=== PATIENT | male | born 1970 | race Caucasian/White ===

== ENCOUNTER → 2016-10-09 | Day surgery (SDC) | payer OTHER ==
[~2016-10-09] VITALS: Ht 185.4 cm; Wt 149.0 kg
[~2016-10-09] MED LIST: AMLO10 PO; DEXAMETHASONE SOD PHOS 4 MG/ML VIAL ONE; DO NOT ADM ANY ANTICOAGULANT DRUGS XX PRN; INSULIN HUMAN REGULAR 1,000 UNITS/10 ML VIAL SQ PRN; LACTATED RINGER'S 1000 ML IV SCH; METOPROLOL TARTRATE 25 MG TAB PO PRN; MIDAZOLAM HCL 2 MG/2 ML VIAL ONE; OMEP10CA PO; ONDANSETRON HCL 4 MG/2 ML VIAL IV PRN; OXYC-395 PO; PROPOFOL 200 MG/20 ML AMP IV ONE; SIMV5TAB3 PO; SODIUM CHLORID 0.9% 500 ML IV SCH; ceFAZolin 1,000 MG/NS 100 ML IV SCH; oxyCODONE/ACETAMINOPHEN 5 MG/325 MG TAB PO PRN
[2016-10-09 06:35] VITALS: BP 145/96; PULSE 90; RESP 20; TEMP 98.2; O2SAT 94
[2016-10-09 10:30] VITALS: BP 147/89; PULSE 89; RESP 20; TEMP 98; O2SAT 98
--- NOTE | 2016-10-09 11:12 | MP ---
cc: RAMIRO EWING MD DATE OF SURGERY 10/09/2016 PREOPERATIVE DIAGNOSIS Left nephrolithiasis POSTOPERATIVE DIAGNOSIS Left nephrolithiasis SURGEON Ramiro Ewing MD PROCEDURE PERFORMED Left ESWL PERTINENT FINDINGS 1. Left proximal mid ureteral stone approximately 7 mm in size 2. Adequate fragmentation of stones noted on fluoroscopic imaging after completion of ESWL. HISTORY OF PRESENT ILLNESS Aaron Henry is a 46-year-old male with a left sided nephrolithiasis who presents today for treatment of his stone burden with ESWL. The patient understands the risks and benefits of the procedure and also understands if the stone fragments, there is a chance it may get stuck in the ureter on its way out, therefore requiring a left ureteral stent. The patient understand and agrees to proceed forward with the operation. PROCEDURE IN DETAIL After proper informed consent was obtained, the patient was brought to the operating room and laid supine on the operating room table. The patient was then placed under general anesthesia. The patient was placed in position for the lithotripsy machine. Fluoroscopy identified the left mid to proximal ureteral stone. At this point, 3000 shocks were delivered to the stone with adequate fragmentation noted on fluoroscopic imaging. After completion of the 3000 shocks, the patient was awoken from anesthesia and taken to the PACU in good and stable condition. The patient tolerated the procedure well with no complications. DISPOSITION The patient will be discharged home with follow up in the clinic in one to two weeks with KUB. Ramiro Ewing M.D. SMTimothy/MALIKA /8:23 AM /11:02 AM
--- NOTE | 2016-10-09 22:28 | EKG ---
Date Performed: 10/09/2016 Time Performed: 06:45:06 PTAGE: 46 years EKG: Sinus rhythm PROBABLE INFERIOR MYOCARDIAL INFARCTION , PROBABLY OLD ABNORMAL ECG NO PREVIOUS TRACING DOCTOR: Arjun Garcia Interpretating Date/Time 10/09/2016 22:26:06
== END | disposition home or self-care (01) ==
LOC: HSDC 05:46
PROVIDERS: ATTEND Urology
DX: N20.1 Calculus of ureter (principal); N20.0 Calculus of kidney; Z01.810 Encounter for preprocedural cardiovascular examination
CPT/HCPCS: 00872; 50590; 93005; J0690; J1100; J2250; J7120

== ENCOUNTER → 2017-03-03 | Day surgery (SDC) | payer OTHER ==
[~2017-03-03] MED LIST changes: -DEXAMETHASONE SOD PHOS 4 MG/ML VIAL ONE; -DO NOT ADM ANY ANTICOAGULANT DRUGS XX PRN; -INSULIN HUMAN REGULAR 1,000 UNITS/10 ML VIAL SQ PRN; +LACTATED RINGER'S 1000 ML INJ 1,000 ML ONE; -LACTATED RINGER'S 1000 ML IV SCH; -METOPROLOL TARTRATE 25 MG TAB PO PRN; -MIDAZOLAM HCL 2 MG/2 ML VIAL ONE; -ONDANSETRON HCL 4 MG/2 ML VIAL IV PRN; -PROPOFOL 200 MG/20 ML AMP IV ONE; +PROPOFOL 500 MG/50 ML BTL IV ONE; -SODIUM CHLORID 0.9% 500 ML IV SCH; -ceFAZolin 1,000 MG/NS 100 ML IV SCH; -oxyCODONE/ACETAMINOPHEN 5 MG/325 MG TAB PO PRN
--- NOTE | 2017-03-03 15:27 | GIPROC ---
[facility] [address] [facility], [address] COLONOSCOPY PROCEDURE REPORT EXAM DATE: 03/03/2017 PATIENT NAME: Aaron Henry MR #: [id number] BIRTHDATE: 1970 ENDOSCOPIST: Tete Meehan MD ORDER #: [id number] PROFESSOR OF HISTORICAL THEOLOGY: Veda Clemens RN STATUS: outpatient INDICATIONS: The patient is a 46 yr old male here for a colonoscopy due to high risk patient with personal history of colonic polyps and chronic diarrhea PROCEDURE PERFORMED: Colonoscopy with biopsy MEDICATIONS: None and Per Anesthesia. PREP QUALITY: fair ESTIMATED BLOOD LOSS: None CONSENT: The patient understands the risks and benefits of the procedure and understands that these risks include, but are not limited to: sedation, allergic reaction, infection, perforation and/or bleeding. Alternative means of evaluation and treatment include, among others: physical exam, x-rays, and/or surgical intervention. The patient elects to proceed with this endoscopic procedure. medical equipment was checked for proper function. Hand hygiene and appropriate measures for infection prevention was taken. After the risks, benefits and alternatives of the procedure were thoroughly explained, Informed consent was verified, confirmed and timeout was successfully executed by the treatment team. A digital exam revealed no abnormalities of the rectum The EC-3490Li ([id number]) endoscope was introduced through the anus and advanced to the cecum, which was identified by both the appendix and ileocecal valve. The instrument was then slowly withdrawn as the colon was fully examined. COLON FINDINGS: The colonic mucosa appeared normal. Random Bx from cecum and sigmoid for diarrhea. The colon mucosa was otherwise normal. Some stool mostly right colon. Retroflexed views revealed no abnormalities The scope was then completely withdrawn from the patient and the procedure terminated. ADVERSE EVENTS: There were no complications. IMPRESSIONS: 1. The colonic mucosa appeared normal 2. Random Bx from cecum and sigmoid for diarrhea 3. The colon mucosa was otherwise normal 4. Some stool mostly right colon 5. Retroflexed views revealed no abnormalities 6. Revealed no abnormalities of the rectum RECOMMENDATIONS: 1. Await biopsy results. Biopsy results will not be ready for 7-10 days. If you don't hear from us in two weeks, call our office for results. 2. Yearly hemoccult 3. High fiber diet RECALL: Return 3 years Colonoscopy Tete Meehan MD eSigned: Tete Meehan MD 03/03/2017 3:27 PM cc:
--- NOTE | 2017-03-03 15:31 | GIPROC ---
[facility] [address] [facility], [address] EGD PROCEDURE REPORT EXAM DATE: 03/03/2017 PATIENT NAME: Aaron Henry MR #: [id number] BIRTHDATE: 1970 ATTENDING: Tete Meehan MD ORDER #: [id number] CONTACT CENTER AGENT: Veda Clemens RN STATUS: outpatient INDICATIONS: The patient is a 46 yr old male here for an EGD due to heartburn PROCEDURE PERFORMED: EGD w/ biopsy MEDICATIONS: None and Per Anesthesia. TOPICAL ANESTHETIC: none CONSENT: The patient understands the risks and benefits of the procedure and understands that these risks include, but are not limited to: sedation, allergic reaction, infection, perforation and/or bleeding. Alternative means of evaluation and treatment include, among others: physical exam, x-rays, and/or surgical intervention. The patient elects to proceed with this endoscopic procedure. medical equipment was checked for proper function. Hand hygiene and appropriate measures for infection prevention was taken. After the risks, benefits and alternatives of the procedure were thoroughly explained, Informed consent was verified, confirmed and timeout was successfully executed by the treatment team. The patient was anesthetized with topical anesthesia and the EC-3490Li ([id number]) endoscope was introduced through the mouth and advanced to the second portion of the duodenum. Retroflexed views revealed no abnormalities The gastroscope was then slowly withdrawn and removed. Irregular Z line Bx from EG junction. The endoscopy was otherwise normal. ADVERSE EVENTS: There were no complications. IMPRESSIONS: 1. Irregular Z line Bx from EG junction 2. Normal endoscopy otherwise 3. Retroflexed views revealed no abnormalities RECOMMENDATIONS: 1. Await biopsy results. Biopsy results will not be ready for 7-10 days. If you don't hear from us in two weeks, call our office for biopsy results. 2. Continue PPI 3. Avoid NSAIDS PATIENT CONDITION: stable DISPOSITION: Home REPEAT EXAM: Return as needed for EGD Tete Meehan MD eSigned: Tete Meehan MD 03/03/2017 3:31 PM cc: DR. Avila
== END | disposition home or self-care (01) ==
LOC: ESDC 12:26
PROVIDERS: ATTEND Hospitalist
DX: R19.7 Diarrhea, unspecified (principal); Z86.010 Personal history of colon polyps; R12 Heartburn; K22.9 Disease of esophagus, unspecified
CPT/HCPCS: 00740; 00810; 43239; 45380; 88305; J3010; J7120